=== PATIENT | female | born 1990 | race Caucasian/White ===

== ENCOUNTER 2021-04-15 14:09 | Outpatient (RCR) | payer MEDICAID, SELFPAY ==
--- NOTE | ~2021-04-15 | XR_ITS ---
EXAMINATION: XR CHEST CLINICAL INFORMATION: Pre-HBO. COMPARISON: None TECHNIQUE: 2 views of the chest were obtained. FINDINGS: No significant abnormality is noted involving the heart, lungs, mediastinum, bony thorax or soft tissues. XR/XR chest 2V IMPRESSION: Unremarkable examination.
--- NOTE | ~2021-04-15 | XR_ITS ---
EXAMINATION: XR SACRUM AND COCCYX CLINICAL INFORMATION: Sacral wound. Evaluate for osteomyelitis. COMPARISON: CT abdomen/pelvis dated 08/18/2011. TECHNIQUE: 2 views of the sacrum and 2 views of the coccyx were obtained. FINDINGS: Soft tissue emphysema overlying the coccyx, consistent with a sacral wound. No radiopaque foreign body. No adjacent osseous erosion or periosteal reaction. No acute fracture or dislocation. No abnormal soft tissue calcification. XR/XR sacrum coccyx min 2V IMPRESSION: Findings consistent with a sacral wound. No radiopaque foreign body or soft tissue calcification. No adjacent osseous abnormality to suggest acute osteomyelitis. Early osteomyelitis may be occult on plain radiographs and if there is clinical concern, bone scan or MRI without and with contrast could help further evaluate.
[2021-04-25 08:55] LABS: MANUAL DIFF FLAG NO
[2021-04-25 09:00] LABS: Basophils Absolute Auto 0.1 X10*3/uL (0.0-0.2); Basophils Percent Auto 1.2 % (0-2); Eosinophils Absolute Auto 0.3 X10*3/uL (0.0-0.4); Eosinophils Percent Auto 3.2 % (0-4); Hematocrit 35.8 % (37-47); Hemoglobin 10.9 g/dl (12.0-16.0); Imm Gran Abs Auto 0.02 X10*3/uL (0.00-0.03); Imm Gran Pct Auto 0.2 % (0.0-0.4); Lymphocytes Absolute Auto 3.5 X10*3/uL (1.2-4.9); Mean Corpuscular HGB Conc 30.4 g/dl (31.0-35.0); Mean Corpuscular Hemoglobin 23.1 pg (27.0-33.0); Mean Platelet Volume 10.2 fL (9.4-12.3); Monocytes Absolute Auto 0.7 X10*3/uL (0.1-1.2); Monocytes Percent Auto 8.3 % (2-11); Neutrophils Absolute Auto 3.5 X10*3/uL (2.0-8.3); Neutrophils Percent Auto 44.1 % (45-73); Platelet Count 258 X10*3/uL (160-400); Red Blood Count 4.71 X10*6/uL (4.20-5.50); Red Cell Distribution Width 18.1 % (11.0-16.0); White Blood Count 8.1 X10*3/uL (4.8-10.8)
[2021-04-25 09:19] LABS: Estimated Average Glucose 97 mg/dL
[2021-04-25 09:30] LABS: Anion Gap 15 (12-20); Blood Urea Nitrogen 8 mg/dL (9-16); C Reactive Protein 0.31 mg/dL (< or = 0.50); Calcium 9.9 mg/dL (8.4-10.2); Carbon Dioxide 25 mmol/L (22-29); Chloride 106 mmol/L (96-108); Estimated Glomerular Filt Rate > 60; Glucose Random 87 mg/dL (60-115); Potassium 4.5 mmol/L (3.3-5.1); Sodium 141 mmol/L (135-145)
[2021-04-25 09:45] LABS: Erythrocyte Sedimentation Rate 23 MM/HR (0-20)
[2021-07-29 10:05] LABS: MANUAL DIFF FLAG NO
[2021-07-29 10:24] LABS: Basophils Absolute Auto 0.1 X10*3/uL (0.0-0.2); Eosinophils Absolute Auto 0.3 X10*3/uL (0.0-0.4); Eosinophils Percent Auto 3.3 % (0-4); Hematocrit 38.6 % (37.0-47.0); Hemoglobin 12.2 g/dl (12.0-16.0); Imm Gran Abs Auto 0.03 X10*3/uL (0.00-0.03); Imm Gran Pct Auto 0.3 % (0.0-0.4); Lymphocytes Absolute Auto 3.3 X10*3/uL (1.2-4.9); Lymphocytes Percent Auto 37.3 % (20-40); Mean Corpuscular HGB Conc 31.6 g/dl (31.0-35.0); Mean Corpuscular Hemoglobin 25.6 pg (27.0-33.0); Mean Corpuscular Volume 80.9 fL (80.0-98.0); Mean Platelet Volume 9.5 fL (9.4-12.3); Monocytes Absolute Auto 0.7 X10*3/uL (0.1-1.2); Monocytes Percent Auto 7.4 % (2-11); Neutrophils Absolute Auto 4.5 x10*3/uL (2.0-8.3); Neutrophils Percent Auto 50.7 % (45-73); Platelet Count 239 X10*3/uL (160-400); Red Blood Count 4.77 X10*6/uL (4.20-5.50); Red Cell Distribution Width 14.4 % (11.0-16.0); White Blood Count 8.9 X10*3/uL (4.8-10.8)
[2021-07-29 10:55] LABS: Anion Gap 14 (12-20); Blood Urea Nitrogen 12 mg/dL (9-16); C Reactive Protein 0.51 mg/dL (< or = 0.50); Calcium 9.8 mg/dL (8.4-10.2); Carbon Dioxide 24 mmol/L (22-29); Chloride 103 mmol/L (96-108); Estimated Glomerular Filt Rate > 60; Glucose Random 114 mg/dL (60-115); Potassium 4.6 mmol/L (3.3-5.1); Sodium 136 mmol/L (135-145)
[2021-07-29 11:21] LABS: Erythrocyte Sedimentation Rate 25 MM/HR (0-20)
[2021-07-29 11:50] LABS: Estimated Average Glucose 103 mg/dL; Hemoglobin A1c % 5.2 %
== END 2021-10-26 15:20 | disposition home or self-care (01) ==
LOC: HO.WCC 14:09
PROVIDERS: Physician Assistant; PCP Internal Medicine; Visit Provider Surgery
DX: E11.621 Type 2 diabetes mellitus with foot ulcer (principal); L97.422 Non-pressure chronic ulcer of left heel and midfoot with fat layer exposed; E11.69 Type 2 diabetes mellitus with other specified complication; M46.28 Osteomyelitis of vertebra, sacral and sacrococcygeal region; Z79.2 Long term (current) use of antibiotics; Z79.84 Long term (current) use of oral hypoglycemic drugs; Z79.899 Other long term (current) drug therapy
CPT/HCPCS: 11042; 36415; 71046; 72220; 80048; 83036; 84134; 85025; 85652; 86140; 87071; 87077; 87186; 87205; 97597; 99183; 99211; 99212; 99213

== ENCOUNTER 2021-04-30 15:04 | Outpatient (REF) | payer MEDICAID, SELFPAY ==
--- NOTE | ~2021-04-30 | MR_ITS ---
EXAMINATION: MR PELVIS WITHOUT AND WITH CONTRAST CLINICAL INFORMATION: Nonhealing sacral wound. Rule out osteomyelitis. COMPARISON: X-ray 04/25/2021. CT 08/18/2011. TECHNIQUE: MRI in a high-field magnet without and with contrast. 10 mL of Gadavist intravenous contrast. FINDINGS: There is a posterior sacral tissue wound/ulceration. There is soft tissue edema and enhancement extending deep to the wound to the level of the posterior right-sided sacrococcygeal junction and coccyx, correlate with cellulitis. This also edema and enhancement in the right gluteus gurmeet musculature in this region for myositis. No organized fluid collection seen. There is edema and enhancement with loss of T1 signal along the right side of the sacrococcygeal junction, with loss of T1 signal, suspicious for osteomyelitis. Marrow signal in the more inferior aspect of the coccyx appears maintained. No additional areas of osteomyelitis identified. There is edema and enhancement in the skin and subcutaneous tissues of the posterior/lateral left gluteal region, extending to the level of the gluteal musculature, presumably reflecting cellulitis. No fluid collections. Visualized muscles and tendons otherwise appear intact. Subcentimeter bilateral groin lymph nodes. No free fluid in the pelvis. Bilateral ovaries appear unremarkable. MR/MR pelvis wo/w con IMPRESSION: Posterior sacral wound/ulceration, with cellulitis extending to the posterior and right side of the coccyx and sacrococcygeal junction. There is edema/myositis of the subjacent right gluteus gurmeet muscle. No organized fluid collection. Abnormal findings in the right side of the sacrococcygeal junction, suspicious for involvement by osteomyelitis. Edema/cellulitis in the posterior lateral left gluteal soft tissues extending to the gluteus gurmeet muscle.
== END 2021-04-30 15:05 | disposition home or self-care (01) ==
LOC: HO.MRI 15:04
PROVIDERS: PCP Internal Medicine; Visit Provider Plastic Surgery
DX: L89.153 Pressure ulcer of sacral region, stage 3 (principal)
CPT/HCPCS: 72197; A9585

== ENCOUNTER → 2021-05-08 14:59 | Outpatient (BNVA) | payer MEDICAID, SELFPAY | PROVIDERS: PCP Internal Medicine; Visit Provider Internal Medicine | DX: L98.419 Non-pressure chronic ulcer of buttock with unspecified severity (principal); E10.622 Type 1 diabetes mellitus with other skin ulcer; E10.65 Type 1 diabetes mellitus with hyperglycemia; M86.9 Osteomyelitis, unspecified; Z87.891 Personal history of nicotine dependence | CPT/HCPCS: 99202 ==

== ENCOUNTER 2021-05-28 09:33 | Outpatient (REF) | payer MEDICAID, SELFPAY ==
--- NOTE | ~2021-05-28 | IR_ITS ---
PROCEDURE: IR INSERTION OF PICC CLINICAL INFORMATION: Osteomyelitis COMPARISON: None TECHNIQUE: Procedure risks and benefits including bleeding, infection and blood clot were discussed with the patient by the IR nurses who began the procedure. The PICC line could not be advanced past the upper arm and exam was completed in the IR suite using fluoroscopy. All elements of maximal sterile barrier technique followed including use of cap, mask, sterile gown, sterile gloves, a sterile full body drape and hand hygiene. Also followed skin preparation with 2% chlorhexidine for cutaneous antisepsis, and sterile ultrasound preparation with sterile gel and probe cover when applicable. The right upper arm and existing sheath were prepped and draped in the usual sterile fashion. An 018 wire was advanced through the sheath centrally into the SVC. A 4 [place] double-lumen PICC line was advanced over the guidewire using fluoroscopic guidance. Catheter length is 42 cm. Fluoroscopy time 1.[address] Y per centimeter squared. 1 saved fluoroscopic image. FINDINGS: There is a right upper extremity PICC line with tip projecting over the cavoatrial junction. IR/IR cvc insert peripheral IMPRESSION: Fluoroscopy guidance for right upper extremity PICC line placement.
--- NOTE | 2021-05-28 15:46 | P.PICC_ITS ---
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 Following completion of [place] Protocol the skin and soft tissues were anesthetized with 1% Lidocaine plain. Using ultrasound guidance, CEPHALIC vein access was obtained IN SINGLE ATTEMPT BY THIS RN. Over an 0.018 wire through peel-away sheath, a DOUBLE LUMEN, 5-COLOMBIAN, PASV PICC line was positioned. DIFFICULTY ADVANCING PICC LINE PASSED CLAVICULAR AREA; MILD RESISTANCE MET AND PT C/O MILD DISCOMFORT NEAR CLAVICLE PER PT WHEN THIS RESISTANCE IS MET. AT THIS TIME, DR MACHADO WAS CALLED FOR ASSISTANCE. UNDER FLUOROSCOPY GUIDANCE, DR MACHADO WAS ABLE TO PLACE PICC LINE AND POSITION. Catheter length is 42 CM internal length, 0 CM external length, for a total trimmed length of 42 CM. The procedure was performed in [facility]. Ultrasound was used to document vein patency and for needle entry. A formal ultrasound picture and cardiac rhythm strip was recorded. [employer] Production [employer] has released the line for use and it is currently dressed with a StatLock, Tegaderm, and CHG disc. Verification has been performed for blood return and line patency. Arm Circumference: 37 CM Equipment: [employer] POWERPICC SOLO Catheter Type: DOUBLE LUMEN, 5-COLOMBIAN, PASV PICC Lot #: [id number]
== END 2021-05-28 09:34 | disposition home or self-care (01) ==
LOC: HO.MDS 09:33
PROVIDERS: PCP Internal Medicine; Visit Provider Internal Medicine
DX: M86.9 Osteomyelitis, unspecified (principal); Z45.2 Encounter for adjustment and management of vascular access device
CPT/HCPCS: 36573; 96365; C1751; J3370; Q9967

== ENCOUNTER 2021-06-01 12:53 | Outpatient (REF) | payer MEDICAID, SELFPAY ==
[2021-06-01 14:19] LABS: Hematocrit 40.1 % (37-47); Hemoglobin 12.2 g/dl (12.0-16.0); Mean Corpuscular HGB Conc 30.4 g/dl (31.0-35.0); Mean Corpuscular Hemoglobin 24.2 pg (27.0-33.0); Mean Corpuscular Volume 79.6 fL (80-98); Mean Platelet Volume 11.9 fL (9.4-12.3); Platelet Count 225 X10*3/uL (160-400); Red Blood Count 5.04 X10*6/uL (4.20-5.50); Red Cell Distribution Width 16.7 % (11.0-16.0); White Blood Count 7.9 X10*3/uL (4.8-10.8)
[2021-06-01 15:19] LABS: Blood Urea Nitrogen 9 mg/dL (9-16); Estimated Glomerular Filt Rate > 60
[2021-06-01 15:30] LABS: Vancomycin Trough 10.3 mcg/mL (10.0-20.0)
== END 2021-06-01 12:54 | disposition home or self-care (01) ==
LOC: HO.HVNA 12:53
PROVIDERS: Visit Provider Internal Medicine
DX: M86.9 Osteomyelitis, unspecified (principal); M89.9 Disorder of bone, unspecified
CPT/HCPCS: 36415; 80202; 82565; 84520; 85027

== ENCOUNTER → 2021-06-05 11:13 | Outpatient (BNVA) | payer MEDICAID, SELFPAY | PROVIDERS: Visit Provider Internal Medicine | DX: M86.9 Osteomyelitis, unspecified (principal) | CPT/HCPCS: 99212 ==

== ENCOUNTER 2021-06-09 12:11 | Outpatient (REF) | payer MEDICAID, SELFPAY ==
[2021-06-09 14:10] LABS: MANUAL DIFF FLAG NO
[2021-06-09 14:18] LABS: Basophils Absolute Auto 0.1 X10*3/uL (0.0-0.2); Basophils Percent Auto 0.9 % (0-2); Eosinophils Absolute Auto 0.3 X10*3/uL (0.0-0.4); Eosinophils Percent Auto 3.9 % (0-4); Hematocrit 38.9 % (37-47); Hemoglobin 11.9 g/dl (12.0-16.0); Imm Gran Abs Auto 0.01 X10*3/uL (0.00-0.03); Imm Gran Pct Auto 0.1 % (0.0-0.4); Lymphocytes Absolute Auto 3.1 X10*3/uL (1.2-4.9); Lymphocytes Percent Auto 38.2 % (20-40); Mean Corpuscular HGB Conc 30.6 g/dl (31.0-35.0); Mean Corpuscular Hemoglobin 24.3 pg (27.0-33.0); Mean Corpuscular Volume 79.6 fL (80-98); Mean Platelet Volume 11.1 fL (9.4-12.3); Monocytes Absolute Auto 0.7 X10*3/uL (0.1-1.2); Monocytes Percent Auto 7.9 % (2-11); Platelet Count 242 X10*3/uL (160-400); Red Blood Count 4.89 X10*6/uL (4.20-5.50); Red Cell Distribution Width 16.1 % (11.0-16.0); White Blood Count 8.2 X10*3/uL (4.8-10.8)
[2021-06-09 15:03] LABS: Vancomycin Trough 9.4 mcg/mL (10.0-20.0)
== END 2021-06-09 12:12 | disposition home or self-care (01) ==
LOC: HO.HVNA 12:11
PROVIDERS: Visit Provider Internal Medicine
DX: Z79.899 Other long term (current) drug therapy (principal)
CPT/HCPCS: 36415; 80202; 85025

== ENCOUNTER 2021-06-16 | Outpatient (REF) | payer MEDICAID, SELFPAY ==
[2021-06-16 12:03] LABS: Basophils Absolute Auto 0.1 X10*3/uL (0.0-0.2); Basophils Percent Auto 0.9 % (0-2); Eosinophils Absolute Auto 0.3 X10*3/uL (0.0-0.4); Eosinophils Percent Auto 3.7 % (0-4); Hematocrit 38.3 % (37-47); Hemoglobin 11.9 g/dl (12.0-16.0); Imm Gran Abs Auto 0.01 X10*3/uL (0.00-0.03); Imm Gran Pct Auto 0.1 % (0.0-0.4); Lymphocytes Absolute Auto 3.7 X10*3/uL (1.2-4.9); Lymphocytes Percent Auto 43.5 % (20-40); MANUAL DIFF FLAG NO; Mean Corpuscular HGB Conc 31.1 g/dl (31.0-35.0); Mean Corpuscular Hemoglobin 24.7 pg (27.0-33.0); Mean Corpuscular Volume 79.6 fL (80-98); Mean Platelet Volume 10.5 fL (9.4-12.3); Monocytes Absolute Auto 0.6 X10*3/uL (0.1-1.2); Monocytes Percent Auto 6.8 % (2-11); Neutrophils Absolute Auto 3.9 X10*3/uL (2.0-8.3); Platelet Count 238 X10*3/uL (160-400); Red Blood Count 4.81 X10*6/uL (4.20-5.50); White Blood Count 8.6 X10*3/uL (4.8-10.8)
[2021-06-16 12:48] LABS: Blood Urea Nitrogen 9 mg/dL (9-16); Estimated Glomerular Filt Rate > 60
[2021-06-16 12:55] LABS: Vancomycin Trough 8.9 mcg/mL (10.0-20.0)
== END 2021-06-16 00:01 | disposition home or self-care (01) ==
LOC: HO.HMGCLNP
PROVIDERS: Visit Provider Internal Medicine
DX: M89.9 Disorder of bone, unspecified (principal)
CPT/HCPCS: 80202; 82565; 84520; 85025

== ENCOUNTER → 2021-06-19 10:08 | Outpatient (BNVA) | payer MEDICAID, SELFPAY | PROVIDERS: PCP Internal Medicine; Visit Provider Internal Medicine | DX: M86.9 Osteomyelitis, unspecified (principal) | CPT/HCPCS: 99212 ==

== ENCOUNTER 2021-06-23 16:43 | Outpatient (REF) | payer MEDICAID, SELFPAY ==
[2021-06-23 16:47] LABS: MANUAL DIFF FLAG NO
[2021-06-23 16:53] LABS: Basophils Absolute Auto 0.1 X10*3/uL (0.0-0.2); Basophils Percent Auto 1.4 % (0-2); Eosinophils Absolute Auto 0.3 X10*3/uL (0.0-0.4); Eosinophils Percent Auto 5.1 % (0-4); Hematocrit 37.8 % (37-47); Hemoglobin 11.6 g/dl (12.0-16.0); Imm Gran Abs Auto 0.01 X10*3/uL (0.00-0.03); Imm Gran Pct Auto 0.2 % (0.0-0.4); Lymphocytes Absolute Auto 2.9 X10*3/uL (1.2-4.9); Lymphocytes Percent Auto 43.4 % (20-40); Mean Corpuscular HGB Conc 30.7 g/dl (31.0-35.0); Mean Corpuscular Hemoglobin 24.9 pg (27.0-33.0); Mean Corpuscular Volume 81.3 fL (80-98); Mean Platelet Volume 10.7 fL (9.4-12.3); Monocytes Absolute Auto 0.6 X10*3/uL (0.1-1.2); Monocytes Percent Auto 8.9 % (2-11); Neutrophils Absolute Auto 2.7 X10*3/uL (2.0-8.3); Platelet Count 213 X10*3/uL (160-400); Red Blood Count 4.65 X10*6/uL (4.20-5.50); Red Cell Distribution Width 15.7 % (11.0-16.0); White Blood Count 6.6 X10*3/uL (4.8-10.8)
[2021-06-23 17:09] LABS: Blood Urea Nitrogen 11 mg/dL (9-16); Estimated Glomerular Filt Rate > 60
[2021-06-23 17:12] LABS: Vancomycin Trough 9.9 mcg/mL (10.0-20.0)
== END 2021-06-23 16:44 | disposition home or self-care (01) ==
LOC: HO.LNP 16:43
PROVIDERS: Visit Provider Internal Medicine
DX: M89.9 Disorder of bone, unspecified (principal)
CPT/HCPCS: 80202; 82565; 84520; 85025

== ENCOUNTER 2021-06-29 14:05 | Outpatient (REF) | payer MEDICAID, SELFPAY ==
[2021-06-29 14:10] LABS: MANUAL DIFF FLAG NO
[2021-06-29 14:25] LABS: Basophils Absolute Auto 0.1 X10*3/uL (0.0-0.2); Basophils Percent Auto 1.2 % (0-2); Eosinophils Absolute Auto 0.4 X10*3/uL (0.0-0.4); Eosinophils Percent Auto 6.5 % (0-4); Hematocrit 36.7 % (37-47); Hemoglobin 11.5 g/dl (12.0-16.0); Imm Gran Abs Auto 0.02 X10*3/uL (0.00-0.03); Imm Gran Pct Auto 0.3 % (0.0-0.4); Lymphocytes Absolute Auto 2.4 X10*3/uL (1.2-4.9); Lymphocytes Percent Auto 35.7 % (20-40); Mean Corpuscular HGB Conc 31.3 g/dl (31.0-35.0); Mean Corpuscular Hemoglobin 24.6 pg (27.0-33.0); Mean Corpuscular Volume 78.6 fL (80-98); Mean Platelet Volume 10.5 fL (9.4-12.3); Monocytes Absolute Auto 0.5 X10*3/uL (0.1-1.2); Monocytes Percent Auto 8.2 % (2-11); Neutrophils Absolute Auto 3.2 X10*3/uL (2.0-8.3); Neutrophils Percent Auto 48.1 % (45-73); Platelet Count 189 X10*3/uL (160-400); Red Blood Count 4.67 X10*6/uL (4.20-5.50); White Blood Count 6.6 X10*3/uL (4.8-10.8)
[2021-06-29 14:54] LABS: Estimated Glomerular Filt Rate > 60
[2021-06-29 14:55] LABS: Blood Urea Nitrogen 12 mg/dL (9-16)
[2021-06-29 15:00] LABS: Vancomycin Trough 7.3 mcg/mL (10.0-20.0)
== END 2021-06-29 14:06 | disposition home or self-care (01) ==
LOC: HO.LNP 14:05
PROVIDERS: Visit Provider Internal Medicine
DX: M89.9 Disorder of bone, unspecified (principal); M86.9 Osteomyelitis, unspecified
CPT/HCPCS: 80202; 82565; 84520; 85025

== ENCOUNTER → 2021-07-03 09:38 | Outpatient (BNVA) | payer MEDICAID, SELFPAY | PROVIDERS: Visit Provider Internal Medicine | DX: M86.9 Osteomyelitis, unspecified (principal) | CPT/HCPCS: 99212 ==

== ENCOUNTER 2021-07-07 13:04 | Outpatient (REF) | payer MEDICAID, SELFPAY ==
[2021-07-07 13:58] LABS: MANUAL DIFF FLAG NO
[2021-07-07 13:59] LABS: Basophils Absolute Auto 0.1 X10*3/uL (0.0-0.2); Basophils Percent Auto 1.2 % (0-2); Eosinophils Absolute Auto 0.5 X10*3/uL (0.0-0.4); Eosinophils Percent Auto 5.1 % (0-4); Hemoglobin 11.9 g/dl (12.0-16.0); Imm Gran Abs Auto 0.04 X10*3/uL (0.00-0.03); Imm Gran Pct Auto 0.4 % (0.0-0.4); Lymphocytes Absolute Auto 3.2 X10*3/uL (1.2-4.9); Lymphocytes Percent Auto 34.3 % (20-40); Mean Corpuscular HGB Conc 31.3 g/dl (31.0-35.0); Mean Corpuscular Hemoglobin 25.2 pg (27.0-33.0); Mean Corpuscular Volume 80.3 fL (80-98); Mean Platelet Volume 10.3 fL (9.4-12.3); Monocytes Absolute Auto 0.8 X10*3/uL (0.1-1.2); Monocytes Percent Auto 8.4 % (2-11); Neutrophils Absolute Auto 4.7 X10*3/uL (2.0-8.3); Neutrophils Percent Auto 50.6 % (45-73); Platelet Count 234 X10*3/uL (160-400); Red Blood Count 4.73 X10*6/uL (4.20-5.50); Red Cell Distribution Width 15.2 % (11.0-16.0); White Blood Count 9.3 X10*3/uL (4.8-10.8)
[2021-07-07 14:20] LABS: Blood Urea Nitrogen 11 mg/dL (9-16); Estimated Glomerular Filt Rate > 60
[2021-07-07 14:34] LABS: Vancomycin Trough 6.8 mcg/mL (10.0-20.0)
== END 2021-07-07 13:05 | disposition home or self-care (01) ==
LOC: HO.HMGCLNP 13:04
PROVIDERS: Visit Provider Internal Medicine
DX: M89.9 Disorder of bone, unspecified (principal)
CPT/HCPCS: 80202; 82565; 84520; 85025

== ENCOUNTER → 2021-07-31 10:22 | Outpatient (BNVA) | payer MEDICAID, SELFPAY | PROVIDERS: Visit Provider Internal Medicine | DX: E11.69 Type 2 diabetes mellitus with other specified complication (principal); M46.28 Osteomyelitis of vertebra, sacral and sacrococcygeal region; E11.65 Type 2 diabetes mellitus with hyperglycemia; Z87.891 Personal history of nicotine dependence; Z88.1 Allergy status to other antibiotic agents; Z88.0 Allergy status to penicillin; Z79.84 Long term (current) use of oral hypoglycemic drugs; Z79.899 Other long term (current) drug therapy | CPT/HCPCS: 99212 ==